=== PATIENT | female | born 1970 | race Caucasian/White ===

== ENCOUNTER → 2018-03-23 | Outpatient (CLI) | payer MEDICARE, MEDICAID | LOC: M SLEEP 20:00 | DX: G47.33 Obstructive sleep apnea (adult) (pediatric) (principal) | CPT/HCPCS: 95811 ==

== ENCOUNTER 2018-11-01 14:27 | Emergency (ER) | payer OTHER, MEDICARE, MEDICAID ==
[2018-11-01] MEDS ORDERED: LISI10TA4 PO (14:47)
[2018-11-01] MEDS ORDERED: JANU100T PO (14:47)
[2018-11-01] MEDS ORDERED: METF10004 PO (14:47)
[2018-11-01] MEDS ORDERED: CYCL10TA PO (14:47)
[2018-11-01] MEDS ORDERED: ATOR1TAB21 PO (14:48)
[2018-11-01] MEDS ORDERED: ADV250INH INH (14:48)
[2018-11-01] MEDS ORDERED: ADACEL/BOOSTRIX VACCINE (DIPHTH/PERTUSS/ACELL/TETANUS)0.5ML SYR (90715) IM ONE (15:00)
--- NOTE | 2018-11-01 15:14 | REP ---
Clinical: Trauma/injury . Comparison: None . Findings: The ventricles, sulci, and cisterns are normal in position and appearance. Torres-white differentiation is maintained. No acute intracranial hemorrhage, mass/mass effect, pathology or trauma/injury. No evidence for acute infarction. No extra-axial fluid collection. Calvarium is intact. Paranasal sinuses and mastoid air cells are clear. Impression: Normal noncontrast head CT. No evidence for acute intracranial pathology or trauma/injury. Electronically Signed by Santosh Parikh MD 11/01/2018 03:06 P
[2018-11-01 16:05] VITALS: BP 155/72
== END 2018-11-01 16:06 | disposition home or self-care (01) ==
LOC: EDBD 14:27 → M ED 14:27
DX: S01.01XA Laceration without foreign body of scalp, initial encounter (principal); V48.5XXA Car driver injured in noncollision transport accident in traffic accident, initial encounter; Y92.9 Unspecified place or not applicable; Y93.9 Activity, unspecified; Y99.9 Unspecified external cause status; E11.9 Type 2 diabetes mellitus without complications; Z72.0 Tobacco use; Z79.84 Long term (current) use of oral hypoglycemic drugs; Z79.899 Other long term (current) drug therapy; Z91.030 Bee allergy status

== ENCOUNTER → 2020-03-24 | Outpatient (REF) | payer MEDICARE, MEDICAID ==
[~2020-03-24] MED LIST: ADV250INH INH; ATOR1TAB21 PO; CYCL-707 PO; JANU100T PO; LISI10TA4 PO; METF10004 PO
[2020-03-25 19:11] LABS: CREATININE, URINE 32.5 MG/DL; MALB URINE SIEMENS 8.1 MG/L; MAU/CREAT RATIO 24.9 MCG/MG (0.0-30.0)
== END ==
LOC: M LAB REF 17:09
PROVIDERS: ATTEND Nurse Practitioner Family
DX: E11.65 Type 2 diabetes mellitus with hyperglycemia (principal)

== ENCOUNTER → 2021-08-23 | Outpatient (REF) | payer OTHER, MEDICAID, MEDICARE ==
[~2021-08-23] MED LIST changes: +LISI10TA22 PO; -LISI10TA4 PO
[2021-08-23 17:53] LABS: CREATININE, URINE 70.5 MG/DL; MALB URINE SIEMENS 18.7 MG/L; MAU/CREAT RATIO 26.5 MCG/MG (0.0-30.0)
== END ==
LOC: M LAB REF 17:01
PROVIDERS: ATTEND Nurse Practitioner Family
DX: E11.65 Type 2 diabetes mellitus with hyperglycemia (principal)

== ENCOUNTER → 2022-07-24 | Outpatient (REF) | payer OTHER, MEDICAID, MEDICARE ==
[2022-07-24 18:42] LABS: CREATININE, URINE 44.8 MG/DL; MALB URINE SIEMENS 24.9 MG/L; MAU/CREAT RATIO 55.5 MCG/MG (0.0-30.0)
== END ==
LOC: M LAB REF 16:59
PROVIDERS: ATTEND Nurse Practitioner Family
DX: E11.65 Type 2 diabetes mellitus with hyperglycemia (principal)

== ENCOUNTER → 2023-02-19 | Outpatient (CLI) | payer OTHER, MEDICAID ==
[2023-02-19 14:32] LABS: BLOOD UREA NITROGEN 13 MG/DL (9-23); CREATININE FOR GFR 0.76 MG/DL (0.55-1.30); GLOMERULAR FILTRATION RATE > 60.0 (>51)
== END ==
LOC: M LAB 13:33
PROVIDERS: ATTEND Psychiatry & Neurology Neurology
DX: I10 Essential (primary) hypertension (principal)

== ENCOUNTER → 2023-02-21 | Outpatient (CLI) | payer OTHER, MEDICAID ==
[~2023-02-21] MED LIST changes: +ISOVUE-370 76% 100ML VIAL As Ordered ONE
== END ==
LOC: M RAD 07:22
PROVIDERS: ATTEND Psychiatry & Neurology Neurology
DX: I65.21 Occlusion and stenosis of right carotid artery (principal)
CPT/HCPCS: 70498; Q9967

== ENCOUNTER → 2023-04-11 | Outpatient (CLI) | payer OTHER, MEDICAID ==
[~2023-04-11] MED LIST changes: -ISOVUE-370 76% 100ML VIAL As Ordered ONE
== END ==
LOC: M SOG 09:21
PROVIDERS: ATTEND Orthopaedic Surgery
DX: M19.012 Primary osteoarthritis, left shoulder (principal)

== ENCOUNTER → 2023-12-25 | Outpatient (CLI) | payer OTHER, MEDICAID | LOC: M PLAIMG 13:06 | PROVIDERS: ATTEND Neurological Surgery | DX: I65.29 Occlusion and stenosis of unspecified carotid artery (principal) ==